=== PATIENT | female | born 1940 | race African-American/Black ===

== ENCOUNTER 2017-06-15 09:33 | Emergency (ER) | payer OTHER ==
[~2017-06-15] VITALS: Ht 154.9 cm; Wt 73.0 kg
[2017-06-15] MEDS ORDERED: BACITRACIN ZINC OINT UDPKT TOP ONE (11:15)
[2017-06-15] MEDS ORDERED: LIDOCAINE HCL 1% 20ML VIAL (Pyxis) INJ MC ONE (11:15)
[2017-06-15 11:40] VITALS: BP 140/66
== END 2017-06-15 11:48 | disposition home or self-care (01) ==
LOC: ER 09:33
PROC: 0H9FXZZ Drainage of Right Hand Skin, External Approach (ICD-10-PCS; principal; 2017-06-15)
DX: L02.511 Cutaneous abscess of right hand (principal); L03.011 Cellulitis of right finger; I10 Essential (primary) hypertension
CPT/HCPCS: 10060; 99283; J3490

== ENCOUNTER 2018-02-22 09:17 | Emergency (ER) | payer OTHER ==
[~2018-02-22] VITALS: Ht 152.4 cm; Wt 73.0 kg
[2018-02-22 11:12] VITALS: BP 126/64
== END 2018-02-22 11:33 | disposition home or self-care (01) ==
LOC: ER 09:17
DX: M79.601 Pain in right arm (principal); I10 Essential (primary) hypertension; W01.0XXA Fall on same level from slipping, tripping and stumbling without subsequent striking against object, initial encounter; Y93.9 Activity, unspecified; Y92.9 Unspecified place or not applicable
CPT/HCPCS: 73030; 99284; A4565

== ENCOUNTER 2019-10-20 12:25 | Emergency (ER) | payer MEDICARE, OTHER ==
[~2019-10-20] VITALS: Ht 154.9 cm; Wt 59.0 kg
[2019-10-20 16:19] VITALS: BP 148/68
== END 2019-10-20 16:17 | disposition home or self-care (01) ==
LOC: ER 12:25
DX: S09.8XXA Other specified injuries of head, initial encounter (principal); W18.2XXA Fall in (into) shower or empty bathtub, initial encounter; Y93.E1 Activity, personal bathing and showering; Y92.012 Bathroom of single-family (private) house as the place of occurrence of the external cause
CPT/HCPCS: 99284